=== PATIENT | female | born 1995 | race Caucasian/White ===

== ENCOUNTER 2017-04-08 20:36 | Emergency (ER) | payer MEDICAID ==
[2017-04-08 20:42] VITALS: BP 133/80; PULSE 78; RESP 18; TEMP 99
[2017-04-08] MEDS ORDERED: KETOROLAC 30 MG/ML 1 ML VIAL IM STA (21:05)
--- NOTE | 2017-04-08 21:35 | XR ---
EXAMINATION TYPE: XR thoracic spine complete DATE OF EXAM: 04/08/2017 COMPARISON: NONE HISTORY: Back pain TECHNIQUE: 3 views FINDINGS: Vertebra have normal spacing and alignment. Posterior elements are intact. I see no adrian pritesh fracture. There is no paraspinal mass. IMPRESSION: Normal thoracic spine.
--- NOTE | 2017-04-08 21:39 | ED ---
Back Pain HPI - General Chief Complaint: Back Pain/Injury Stated Complaint: Back Pain Time Seen by Provider: 04/08/17 20:58 Source: patient Limitations: no limitations - History of Present Illness Initial Comments: Patient is a 21-year-old female presenting to the emergency department with complaints of mid back pain that started yesterday morning around 8 AM. 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 Patient denies recent illness, fevers, chills, nausea, vomiting, shortness of breath, chest pain, abdominal pain, urinary frequency, dysuria, hematuria. Patient denies urinary incontinence or fecal incontinence. Patient denies the possibility of being . Patient states she is on control. Patient took Tylenol prior to arrival. MD Complaint: back pain Onset/Timin -: days(s) Similar Symptoms Previously: No Place: work Radiation: none Severity: moderate Severity scale (1-10): 6 Quality: sharp Consistency: constant Improves With: immobilization Worsens With: movement Context: unknown Associated Symptoms: denies other symptoms Treatments Prior to Arrival: acetaminophen - Related Data Previous Rx's Medication Instructions Recorded Acetaminophen-Codeine 300-30mg 1 tab PO Q6H PRN #12 tablet 04/08/17 [Tylenol #3] Allergies Allergy/AdvReac Type Severity Reaction Status Date / Time No Known Allergies Allergy Verified 04/08/17 20:42 Review of Systems ROS Statement: Those systems with pertinent positive or pertinent negative responses have been documented in the HPI. ROS Other: All systems not noted in ROS Statement are negative. Past Medical History Past Medical History: No Reported History History of Any Multi-Drug Resistant Organisms: None Reported Past Surgical History: No Surgical Hx Reported Past Psychological History: No Psychological Hx Reported Smoking Status: Never smoker Past Alcohol Use History: None Reported Past Drug Use History: None Reported General Exam Limitations: no limitations General appearance: alert, in no apparent distress Head exam: Present: atraumatic, normocephalic, normal inspection Eye exam: Present: normal appearance, PERRL, EOMI. Absent: scleral icterus, conjunctival injection, periorbital swelling, periorbital tenderness ENT exam: Present: normal exam, normal oropharynx, mucous membranes moist, TM's normal bilaterally, normal external ear exam Neck exam: Present: normal inspection, meningismus, full ROM. Absent: tenderness, lymphadenopathy Respiratory exam: Present: normal lung sounds bilaterally. Absent: respiratory distress, wheezes, rales, rhonchi, stridor Cardiovascular Exam: Present: regular rate, normal rhythm, normal heart sounds. Absent: systolic murmur GI/Abdominal exam: Present: soft, normal bowel sounds. Absent: tenderness Extremities exam: Present: normal inspection, full ROM, normal capillary refill. Absent: tenderness, joint swelling, calf tenderness Back exam: Present: normal inspection, paraspinal tenderness, vertebral tenderness (Mid back region). Absent: full ROM (Decreased range of motion with extension and flexion.), CVA tenderness (R), CVA tenderness (L) (Right side), rash noted Expanded Back exam: Absent: saddle anesthesia Back exam: Negative Straight Leg Raising: Left, Right Neurological exam: Present: alert, oriented X3, normal gait, other (No focal deficits noted. No foot drop noted.) Psychiatric exam: Present: normal affect, normal mood Skin exam: Present: warm, dry, intact, normal color Course Vital Signs 04/08/17 04/08/17 20:40 21:50 Temperature 99.0 F 99.0 F Pulse Rate 78 78 Respiratory 18 18 Rate Blood Pressure 133/80 133/80 O2 Sat by Pulse 100 100 Oximetry Medical Decision Making - Medical Decision Making Acute back pain to mid back suspect secondary to strain. Thoracic spine x-ray with no evidence of fracture. Patient given short prescription for Tylenol 3 and instructed to continue Motrin. Patient instructed to follow-up with orthopedic service with persistent pain greater than 7-10 days. Patient instructed to return to the emergency department and with any new or worsening symptoms. Patient agrees to treatment plan. Discharge instructions and return parameters reviewed. - Radiology Data Radiology results: report reviewed Thoracic spine x-ray: Vertebrae have normal spacing and alignment. Posterior elements are intact. No compression fracture. No paraspinal mass. Normal thoracic spine. As read by radiologist Dr. Henderson. Disposition Clinical Impression: Mid back pain Disposition: HOME SELF-CARE Condition: Good Instructions: Acute Low Back Pain (ED) Additional Instructions: Continue Tylenol 3 and Motrin for moderate to severe pain. Apply ice and heat for comfort. [facility] if pain persists in 7-10 days. Please return to the emergency department with any new or worsening symptoms. Prescriptions: Acetaminophen-Codeine 300-30mg [Tylenol #3] 1 tab PO Q6H PRN #12 tablet PRN Reason: Pain Referrals: None,Stated [REFERRING] - 1-2 days Hector De Paz MD [STAFF PHYSICIAN] - 1-2 days Time of Disposition: 21:45
== END 2017-04-08 21:50 | disposition home or self-care (01) ==
LOC: EC 20:36
DX: M54.6 Pain in thoracic spine (principal); X58.XXXA Exposure to other specified factors, initial encounter; Y99.0 Civilian activity done for income or pay; Y92.69 Other specified industrial and construction area as the place of occurrence of the external cause
CPT/HCPCS: 72072; 99283; 96372; J1885

== ENCOUNTER 2018-03-27 18:45 | Emergency (ER) | payer MEDICAID ==
[2018-03-27 20:10] VITALS: RESP 18
[2018-03-27] MEDS ORDERED: KETOROLAC 30 MG/ML 1 ML VIAL IVP STA (20:34)
[2018-03-27] MEDS ORDERED: SODIUM CHLORIDE 0.9% 1,000 ML IV ONE (20:34)
[2018-03-27 20:46] LABS: Basophils % (A) 1 %; Eosinophils % (A) 1 %; HCT 43.4 % (34.0-46.0); Lymphocytes # (A) 1.2 k/uL (1.0-4.8); Lymphocytes % (A) 20 %; MCH 30.6 pg (25.0-35.0); MCHC 34.5 g/dL (31.0-37.0); MCV 88.7 fL (80.0-100.0); Mean Platelet Volume 6.9; Monocytes # (A) 0.5 k/uL (0-1.0); Monocytes % (A) 9 %; Neutrophils % (A) 67 %; Platelet Count 192 k/uL (150-450); RBC 4.89 m/uL (3.80-5.40); RDW 12.8 % (11.5-15.5)
[2018-03-27 21:03] LABS: ALT 42 U/L (9-52); AST 42 U/L (14-36); Albumin 3.8 g/dL (3.5-5.0); Alkaline Phosphatase 63 U/L (38-126); Anion Gap 10 mmol/L; Blood Urea Nitrogen 11 mg/dL (7-17); Calcium 9.2 mg/dL (8.4-10.2); Carbon Dioxide 26 mmol/L (22-30); Chloride 102 mmol/L (98-107); Glucose 96 mg/dL (74-99); Potassium 4.1 mmol/L (3.5-5.1); Sodium 138 mmol/L (137-145); Total Bilirubin 0.2 mg/dL (0.2-1.3); Total Protein 6.7 g/dL (6.3-8.2)
[2018-03-27 21:19] VITALS: BP 111/58; PULSE 94; TEMP 102.1
--- NOTE | 2018-03-27 21:33 | ED ---
Fever HPI - General Chief Complaint: Fever Stated Complaint: fever Time Seen by Provider: 03/27/18 20:17 Source: patient Mode of arrival: ambulatory Limitations: no limitations - History of Present Illness Initial Comments: This patient is a 22-year-old woman with a constellation of upper respiratory symptoms for presents to be evaluated mainly for fever. She states that things started on Saturday. She began to develop sore throat, a little bit of a nonproductive cough, fevers, and little bit of headache. The patient states that she was seen at [facility] for the symptoms. She states that they gave her amoxicillin and prednisone to take. She states that they did perform urinalysis that was negative and a strep swab that was negative. The patient states that she continues to have episodes of fever and at the other symptoms have not improved either. The cough remains nonproductive. She is not having dyspnea. MD Complaint: fever Onset/Timin -: days(s) Temperature Source: subjective Associated Symptoms: sore throat, cough - Related Data Home Medications Medication Instructions Recorded Confirmed Amoxicillin/Potassium Clav 1 tab PO Q12HR 03/27/18 03/27/18 [Augmentin 875-125 Tablet] Dextroamphetamine/Amphetamine 20 mg PO DAILY 03/27/18 03/27/18 [Adderall] Norgestimate-Ethinyl Estradiol 1 tab PO HS 03/27/18 03/27/18 [Sprintec 28 Day Tablet] predniSONE 10 mg PO DAILY 03/27/18 03/27/18 Allergies Allergy/AdvReac Type Severity Reaction Status Date / Time No Known Allergies Allergy Verified 03/27/18 20:03 Review of Systems ROS Statement: Those systems with pertinent positive or pertinent negative responses have been documented in the HPI. ROS Other: All systems not noted in ROS Statement are negative. Constitutional: Reports: fever. Denies: weakness Eyes: Denies: eye pain, vision change ENT: Reports: ear pain, throat pain, congestion. Denies: hearing loss Respiratory: Reports: cough. Denies: dyspnea, wheezes Cardiovascular: Denies: chest pain, palpitations, dyspnea on exertion, orthopnea , edema Gastrointestinal: Denies: abdominal pain, nausea, vomiting, diarrhea Genitourinary: Denies: dysuria, hematuria, discharge Musculoskeletal: Denies: back pain Skin: Denies: rash Neurological: Reports: headache. Denies: weakness, numbness, paresthesias Psychiatric: Denies: anxiety Past Medical History Past Medical History: No Reported History History of Any Multi-Drug Resistant Organisms: None Reported Past Surgical History: No Surgical Hx Reported Past Psychological History: No Psychological Hx Reported Smoking Status: Never smoker Past Alcohol Use History: None Reported Past Drug Use History: None Reported General Exam Limitations: no limitations General appearance: alert, in no apparent distress Head exam: Present: atraumatic, normocephalic Eye exam: Present: normal appearance. Absent: scleral icterus, conjunctival injection ENT exam: Present: mucous membranes moist, TM's normal bilaterally, normal external ear exam, other (There is mild injection of the pharynx. The uvula is midline without edema.). Absent: normal oropharynx Neck exam: Present: normal inspection, full ROM, lymphadenopathy (Bilateral posterior cervical nodes). Absent: tenderness, meningismus Respiratory exam: Present: normal lung sounds bilaterally, other (Occasional nonproductive cough during the exam). Absent: respiratory distress, wheezes, rales, rhonchi, stridor Cardiovascular Exam: Present: regular rate, normal rhythm, normal heart sounds. Absent: systolic murmur, diastolic murmur, rubs, gallop (Heart rate is 100 at my exam) GI/Abdominal exam: Present: soft. Absent: distended, tenderness, guarding, rebound, rigid, mass Extremities exam: Present: normal inspection, normal capillary refill. Absent: pedal edema, calf tenderness Back exam: Present: normal inspection. Absent: CVA tenderness (R), CVA tenderness (L) Neurological exam: Present: alert, oriented X3, CN II-XII intact. Absent: motor sensory deficit Skin exam: Present: warm, dry, intact, normal color. Absent: rash Course Vital Signs 03/27/18 03/27/18 03/27/18 18:52 20:09 20:38 Temperature 100.7 F H 103.3 F H Pulse Rate 119 H 89 95 Respiratory 20 18 18 Rate Blood Pressure 151/95 130/72 126/73 O2 Sat by Pulse 99 99 100 Oximetry 03/27/18 21:18 Temperature 102.1 F H Pulse Rate 94 Respiratory 18 Rate Blood Pressure 111/58 O2 Sat by Pulse 97 Oximetry Medical Decision Making - Lab Data Result diagrams: 03/27/18 20:32 03/27/18 20:32 Lab Results 03/27/18 03/27/18 03/27/18 Range/Units 20:32 20:32 20:32 WBC 6.0 (3.8-10.6) k/uL RBC 4.89 (3.80-5.40) m/uL Hgb 15.0 (11.4-16.0) gm/dL Hct 43.4 (34.0-46.0) % MCV 88.7 (80.0-100.0) fL MCH 30.6 (25.0-35.0) pg MCHC 34.5 (31.0-37.0) g/dL RDW 12.8 (11.5-15.5) % Plt Count 192 (150-450) k/uL Neutrophils % 67 % Lymphocytes % 20 % Monocytes % 9 % Eosinophils % 1 % Basophils % 1 % Neutrophils # 4.0 (1.3-7.7) k/uL Lymphocytes # 1.2 (1.0-4.8) k/uL Monocytes # 0.5 (0-1.0) k/uL Eosinophils # 0.0 (0-0.7) k/uL Basophils # 0.0 (0-0.2) k/uL Sodium 138 (137-145) mmol/L Potassium 4.1 (3.5-5.1) mmol/L Chloride 102 (98-107) mmol/L Carbon Dioxide 26 (22-30) mmol/L Anion Gap 10 mmol/L BUN 11 (7-17) mg/dL Creatinine 0.90 (0.52-1.04) mg/dL Est GFR (CKD-EPI)AfAm >90 (>60 ml/min/1.73 sqM) Est GFR (CKD-EPI)NonAf >90 (>60 ml/min/1.73 sqM) Glucose 96 (74-99) mg/dL Calcium 9.2 (8.4-10.2) mg/dL Total Bilirubin 0.2 (0.2-1.3) mg/dL AST 42 H (14-36) U/L ALT 42 (9-52) U/L Alkaline Phosphatase 63 (38-126) U/L Total Protein 6.7 (6.3-8.2) g/dL Albumin 3.8 (3.5-5.0) g/dL Heterophile Antibody Negative (Negative) Disposition Clinical Impression: Fever, Pharyngitis Disposition: HOME SELF-CARE Condition: Fair Instructions: Mononucleosis (ED), Fever in Adults (ED) Is patient prescribed a controlled substance at d/c from ED?: No Referrals: Keshav Rangel III, MD [Primary Care Provider] - 1-2 days
== END 2018-03-27 21:55 | disposition home or self-care (01) ==
LOC: EC 18:45
DX: J02.9 Acute pharyngitis, unspecified (principal); Z79.899 Other long term (current) drug therapy; Z79.3 Long term (current) use of hormonal contraceptives; Z79.52 Long term (current) use of systemic steroids
CPT/HCPCS: 36415; 80053; 85025; 86308; 87040; 99283; 96374; 96361; J1885

== ENCOUNTER → 2020-05-20 | Outpatient (CLI) | payer MEDICAID | END | disposition home or self-care (01) | LOC: LABWHC1 11:32 | PROVIDERS: ATTEND Pediatrics Pediatric Infectious Diseases | DX: Z11.59 Encounter for screening for other viral diseases (principal) | CPT/HCPCS: U0003; C9803 ==

== ENCOUNTER → 2020-11-13 | Outpatient (CLI) | payer MEDICAID | END | disposition home or self-care (01) | LOC: LABMAIN 15:49 | PROVIDERS: ATTEND Physician Assistant Medical | DX: Z20.822 Contact with and (suspected) exposure to COVID-19 (principal) | CPT/HCPCS: 36415; 86769 ==

== ENCOUNTER → 2021-09-02 | Outpatient (CLI) | payer MEDICAID ==
--- NOTE | 2021-09-02 07:44 | XR ---
EXAMINATION TYPE: XR chest 2V DATE OF EXAM: 09/02/2021 COMPARISON: None HISTORY: 26-year-old female with cough TECHNIQUE: PA and lateral views FINDINGS: The cardiomediastinal silhouette, aorta, and pulmonary vasculature are within normal limits. Lungs an d pleural spaces are clear. IMPRESSION: No acute cardiopulmonary process.
== END ==
LOC: RADXRMAIN 07:18
PROVIDERS: ATTEND Specialist/Technologist Athletic Trainer
DX: R05.9 Cough, unspecified (principal)
CPT/HCPCS: 71046

== ENCOUNTER → 2023-04-30 | Outpatient (CLI) | payer SELFPAY | END | disposition home or self-care (01) | LOC: LABMAIN 03:42 | PROVIDERS: ATTEND Emergency Medicine | DX: J02.9 Acute pharyngitis, unspecified (principal) | CPT/HCPCS: 87651 ==